=== PATIENT | male | born 1975 | race Hispanic/Latino ===

== ENCOUNTER 2018-05-06 15:19 | Emergency (ER) | payer MEDICAID ==
[2018-05-06 15:29] VITALS: BP 136/84; PULSE 70; RESP 16; TEMP 96.7; O2SAT 98
--- NOTE | 2018-05-06 16:33 | ED PDOC ---
HPI: General Adult Time Seen by Provider: 05/06/18 15:33 Chief Complaint (Nursing): Cough, Cold, Congestion Chief Complaint (Provider): CHOKING History/Exam Limitations: no limitations (42 Y/O H/O HIV HERE FOR EVALUATION OF CHOKING AFTER WALKING AND SWALLOWING PIECE OF B[place]KIN[place] NUT. STATES HE HAS EATEN NUTS YESTERDAY WITHOUT SYMPTOMS. DENIES ANY SOB. NOTES SENSATION OF FOREIGN BODY IN THROAT.) Past Medical History Reviewed: Historical Data, Nursing Documentation, Vital Signs Vital Signs: Last Vital Signs Temp 96.7 F L 05/06/18 15:27 Pulse 70 05/06/18 15:27 Resp 16 05/06/18 15:27 BP 136/84 05/06/18 15:27 Pulse Ox 98 05/06/18 15:27 - Medical History PMH: HIV - Family History Family History: States: No Known Family Hx - Immunization History Hx Tetanus Toxoid Vaccination: No Hx Influenza Vaccination: No Hx Pneumococcal Vaccination: No - Home Medications Home Medications: Ambulatory Orders Medication Instructions Recorded Emtricitabine/Tenofovir (Tdf) 1 each PO DAILY 02/02/17 [Truvada 100 mg-150 mg Tablet] Ibuprofen [Motrin] 600 mg PO Q6H #20 tab 02/02/17 DiphenhydrAMINE [Benadryl] 50 mg PO Q8 PRN #24 cap 05/06/18 Epinephrine [Epipen Jr 2-Sajan] 0.15 mg IJ ONCE PRN #1 auto.injct 05/06/18 - Allergies Allergies/Adverse Reactions: Allergies Allergy/AdvReac Type Severity Reaction Status Date / Time No Known Allergies Allergy Verified 02/02/17 18:44 Review of Systems ROS Statement: Except As Marked, All Systems Reviewed And Found Negative Physical Exam - Reviewed Nursing Documentation Reviewed: Yes Vital Signs Reviewed: Yes - Physical Exam Appears: Positive for: Well, Non-toxic, No Acute Distress Head Exam: Positive for: ATRAUMATIC, NORMAL INSPECTION, NORMOCEPHALIC Skin: Positive for: Normal Color, Warm, DRY Eye Exam: Positive for: EOMI, Normal appearance, PERRL ENT: Positive for: Normal ENT Inspection Neck: Positive for: Normal, Painless ROM Cardiovascular/Chest: Positive for: Regular Rate, Rhythm Respiratory: Positive for: CNT, Normal Breath Sounds Gastrointestinal/Abdominal: Positive for: Normal Exam, Soft Back: Positive for: Normal Inspection Extremity: Positive for: Normal ROM Neurologic/Psych: Positive for: Alert, Oriented - ECG O2 Sat by Pulse Oximetry: 98 - Progress ED Course And Treament: PATIENT STATES HE FEELS IMPROVED AFTER SITTING IN ED. XRY OF SOFT TISSUE NECK: NO FOREIGN BODY NOTED. Disposition - Clinical Impression Clinical Impression: Food allergy - Patient ED Disposition Is Patient to be Admitted: No - Disposition Disposition: Routine/Home Disposition Time: 16:34 Condition: STABLE Prescriptions: DiphenhydrAMINE [Benadryl] 50 mg PO Q8 PRN #24 cap PRN Reason: Allergy Symptoms Epinephrine [Epipen Jr 2-Sajan] 0.15 mg IJ ONCE PRN #1 auto.injct PRN Reason: Anaphylaxis Instructions: Food Allergy
--- NOTE | 2018-05-06 17:07 | RAD ---
Date of service: 05/06/2018 HISTORY: Foreign body suspected COMPARISON: None. FINDINGS: Unremarkable pre and paravertebral soft tissues. No visualized radiopaque foreign body. No significant findings cervical spine. IMPRESSION: No acute/significant findings. No visualized radiopaque foreign body.
== END 2018-05-06 16:40 | disposition home or self-care (01) ==
LOC: H.ER 15:19
DX: L27.2 Dermatitis due to ingested food (principal)